=== PATIENT | female | born 1970 | race Caucasian/White ===

== ENCOUNTER → 2017-05-26 13:36 | Outpatient (CLI) | payer BC | END | disposition home or self-care (01) | LOC: D.CT 13:36 | DX: R10.31 Right lower quadrant pain (principal); N39.0 Urinary tract infection, site not specified; R33.9 Retention of urine, unspecified ==

== ENCOUNTER → 2017-07-04 15:11 | Outpatient (CLI) | payer BC | END | disposition home or self-care (01) | LOC: D.RAD 13:00 | DX: R91.1 Solitary pulmonary nodule (principal) ==

== ENCOUNTER → 2020-05-20 14:31 | Outpatient (CLI) | payer BC | END | disposition home or self-care (01) | LOC: D.MRI 14:30 | PROVIDERS: ATTEND Clinical Nurse Specialist Family Health | DX: M54.2 Cervicalgia (principal) ==

== ENCOUNTER 2020-06-22 05:55 | Day surgery (SDC) | payer BC ==
[2020-06-19 15:17] LABS: HEMATOCRIT 39.6 % (36.0-48.0); HEMOGLOBIN 12.6 g/dL (12-16); MCH 30.4 pg (26.0-34.0); MCHC 31.8 g/dL (31.0-37.0); MCV 95.7 fL (80.0-100.0); MEAN PLATELET VOLUME 9.5 fL (7.4-10.4); RBC 4.14 10x6/uL (4.00-5.40); RDW 13.9 % (11.5-14.5); WBC 8.5 10x3/uL (4.8-10.8)
[~2020-06-22] VITALS: Ht 167.6 cm; Wt 71.2 kg
[~2020-06-22 05:55] MED LIST: ALBUTEROL SULF8.5 GM INH; AMBIEN10 MG; LEXAPRO10 MG PO; PROTONIX40 MG PO; SINGULAIR10 MG PO; TRAZODONE HCL100 MG PO; VOLTAREN75 MG PO
[2020-06-22 06:35] VITALS: BP 132/76; Ht 167.6 cm; Wt 71.2 kg
[2020-06-22] MEDS ORDERED: DILAUDID2 MG PO (08:54)
--- NOTE | 2020-06-22 12:10 | NUR ---
IV D/C'D WITH CANNULA INTACT, PRESSURE HELD AND DRSG PLACED. DISCHARGE INSTRUCTIONS GIVEN AND PT VERBALIZED AN UNDERSTANDING. DISCHARGED IN STABLE CONDITION WITH A REPORTED DECREAD IN PAIN TO 4-5/10
--- NOTE | 2020-07-09 11:33 | OP ---
PATIENT NAME: YENNIFER TREJO MEDICAL RECORD: [id number] :68 LOCATION:[facility] ADMISSION DATE: SURGEON: ISAAC GARZA MD DATE OF OPERATION: 06/22/2020 PREOPERATIVE DIAGNOSIS: Patellofemoral syndrome of the right knee. POSTOPERATIVE DIAGNOSIS: Patellofemoral syndrome of the right knee. PROCEDURE: Right knee arthroscopy with arthroscopic lateral release. SURGEON: Isaac Garza MD ANESTHESIA: General. INTRAOPERATIVE COMPLICATIONS: None. SUMMARY OF PATHOLOGIC FINDINGS: The patient had a very laterally riding patella with mild chondromalacia of lateral patellar facet consistent with preoperative diagnosis, radiographs and MRI. OPERATIVE SUMMARY IN DETAIL: After obtaining the appropriate preoperative orthopedic surgery consent as well as anesthetic consultation, evaluation and clearance, the patient was brought to the operating room and placed on the operating table in supine position. After adequate general laryngeal mask airway was administered, tourniquet was placed about the proximal aspect of the right lower extremity. Right lower extremity was then prepped and draped in routine sterile fashion. The leg was elevated and exsanguinated, tourniquet was inflated to 350 mmHg. At this point, the appropriate timeout was taken and agreed upon by all given the patient's unique identifiers. Routine inferolateral portal was established followed by superomedial and inferomedial portal. Diagnostic arthroscopy did reveal the above findings. With the exception of the patellofemoral joint, the knee was relatively pristine. Under direct medial visualization, the lateral retinaculum was visualized and the lateral retinaculum was released using the [place] hook tip tissue ablation system from just over the vastus lateralis to the inferolateral portal. Having completed this, the knee was insufflated with 30 cc of 0.25% Marcaine with epinephrine and 40 mg of Depo-Medrol. Arthroscopy portals were closed in routine interrupted fashion using 4-0 Prolene. Sterile dressings were applied. Tourniquet was deflated. The patient was awakened and taken to recovery room in stable condition. All final needle and sponge counts were correct. TRANSINT:[id number] Voice Confirmation ID: [id number] DOCUMENT ID: [id number] ISAAC GARZA MD at 1133 CC: [id number] DICTATION DATE: 07/09/20 0928 [employer] OPERATOR: 07/09/20 0943 [facility] 06/22/20 [facility] [address] [place] [address]
== END 2020-06-22 10:15 | disposition home or self-care (01) ==
LOC: D.OPS 05:55 → D.PAN 08:30 → D.OPS 10:15 → D.PAN 10:15 → D.OPS 11:30
PROVIDERS: Anesthesiology; ATTEND Orthopaedic Surgery
DX: M22.2X1 Patellofemoral disorders, right knee (principal); M22.2X2 Patellofemoral disorders, left knee; M25.562 Pain in left knee; M25.561 Pain in right knee; D16.9 Benign neoplasm of bone and articular cartilage, unspecified; M48.02 Spinal stenosis, cervical region; M54.2 Cervicalgia